=== PATIENT | male | born 1955 | race Caucasian/White ===

== ENCOUNTER 2017-02-20 19:48 | Emergency (ER) | payer MEDICARE, MEDICAID ==
[2017-02-20 20:00] VITALS: BP 148/70
[2017-02-20] MEDS ORDERED: Lidocaine 1% 20 ML MDV ONE (20:16)
--- NOTE | 2017-02-20 20:38 | EDM.PDOC ---
ED HPI GENERAL MEDICAL PROBLEM - General Chief Complaint: Laceration Stated Complaint: nail puncture wound R Time Seen by Provider: 02/20/17 20:15 History Limitations: Reports: No Limitations - History of Present Illness INITIAL COMMENTS - FREE TEXT/NARRATIVE: Stepped on a naile lacerating his 2nd toe on right foot Onset: Today Duration: Minutes: Location: Reports: Upper Extremity, Right Front/Back Body Image: 1 - 1.5 cm laceration 0 Pain Score (Numeric/FACES): 0 - Related Data Allergies Allergy/AdvReac Type Severity Reaction Status Date / Time No Known Allergies Allergy Verified 02/20/17 20:27 Home Meds: Home Meds Insuln Asp Prot/Insulin Aspart [NovoLOG Mix 70-30] 30 - 35 units SQ DAILY [History] Insuln Asp Prot/Insulin Aspart [NovoLOG Mix 70-30] 40 units SQ QAM 02/20/17 [ History] Valsartan/Hydrochlorothiazide [Valsartan-Hctz 160-12.5 mg Tab] 160 mg PO DAILY 02/20/17 [History] amLODIPine [Norvasc] 10 mg PO DAILY 02/20/17 [History] metFORMIN HCl [Metformin HCl] 1,000 mg PO BID 02/20/17 [History] Past Medical History - Past Health History Medical/Surgical History: Denies Medical/Surgical History Endocrine/Metabolic History: Reports: Diabetes, Type II - Past Surgical History Endocrine Surgical History: Reports: None Oncologic Surgical History: Reports: None Social & Family History - Tobacco Use Smoking Status *Q: Never Smoker Second Hand Smoke Exposure: No - Caffeine Use Caffeine Use: Reports: Coffee - Recreational Drug Use Recreational Drug Use: No ED ROS GENERAL - Review of Systems Review Of Systems: ROS reveals no pertinent complaints other than HPI. ED EXAM, SKIN/RASH Exam: See Below Exam Limited By: No Limitations General Appearance: Alert Ears: Normal External Exam Nose: Normal Inspection Throat/Mouth: Normal Inspection Head: Atraumatic Neck: Normal Inspection Respiratory/Chest: No Respiratory Distress Cardiovascular: Normal Peripheral Pulses GI/Abdominal: Normal Bowel Sounds (Male) Exam: No Hernia Rectal (Males) Exam: Normal Exam Back Exam: Normal Inspection Skin: Wound/Incision Location, Skin: Lower Extremity, Right ED SKIN PROCEDURES - Laceration/Wound Repair Right Side Toes Lac/Wound length In cm: 1.5 Appearance: Irregular Anesthetic Type: Local Local Anesthesia - Lidocaine (Xylocaine): 1% Plain Local Anesthetic Volume: 4cc Skin Prep: Providone-Iodine (Betadine), Saline Closed with: Sutures Suture Size: 3-0 Suture Type: Nylon Sterile Dressing Applied: Provider Tetanus Status Addressed: Yes Complications: No Course - Vital Signs Last Recorded V/S: Last Vital Signs Temp 99.7 F 02/20/17 19:54 Pulse 70 02/20/17 19:54 Resp 16 02/20/17 19:54 BP 148/70 H 02/20/17 19:54 Pulse Ox 96 02/20/17 19:54 - Orders/Labs/Meds Meds: Medications Discontinued Medications Generic Name Dose Route Start Last Admin Trade Name Vimal PRN Reason Stop Dose Admin Lidocaine HCl Confirm 02/20/17 20:16 Xylocaine 1% Administered 02/20/17 20:17 Dose 20 ml .ROUTE .STK-MED ONE Departure - Departure Time of Disposition: 20:35 Disposition: Home, Self-Care 01 Condition: Good Clinical Impression: Laceration - Discharge Information Instructions: Laceration Care, Adult, [id number] Forms: ED Department Discharge Additional Instructions: Take your medications as prescribed. follow up with Dr. Croft this week for wound check
[2017-02-20] MEDS ORDERED: Lidocaine 1% 20 ML MDV INJECT ONE (21:09)
== END 2017-02-20 20:55 | disposition home or self-care (01) ==
LOC: CC.ED 19:48
DX: S91.114A Laceration without foreign body of right lesser toe(s) without damage to nail, initial encounter (principal); E11.9 Type 2 diabetes mellitus without complications; Z79.4 Long term (current) use of insulin; Z79.899 Other long term (current) drug therapy; W45.0XXA Nail entering through skin, initial encounter
CPT/HCPCS: 12001; 96372; 99282; 99283

== ENCOUNTER 2023-11-24 09:44 | Day surgery (SDC) | payer MEDICARE, MEDICAID ==
[2023-11-24] MEDS: Cyclopentolat/Tropic/Phenyleph 1 ML Ophth Drop SDV EYERT SCH (10:21)
[2023-11-24] MEDS: Lactated Ringers 1,000 ML IV SCH (10:22)
[2023-11-24] MEDS ORDERED: Midazolam 1 MG/ML 2 ML SDV ONE (11:08)
[2023-11-24] MEDS: Tetracaine HCl/PF 0.5% 4 ML Bottle EYERT ONE (11:21)
[2023-11-24] MEDS: Brimonidine 0.2% Ophth Soln 5 ML Bottle EYERT ONE (11:21)
[2023-11-24] MEDS: Lidocaine 1% 5 ML VIAL INJECT ONE (11:21)
[2023-11-24] MEDS: MOXIFLOXACIN PF in BSS 1 MG/ML VIAL ICORN ONE (11:21)
[2023-11-24] MEDS: Phenyleprhine/Ketorolac 4 ML Vial IO ONE (11:21)
[2023-11-24] MEDS: Povidone-Iodine 5% Sterile Ophth Soln 30 ML Bottle EYERT ONE (11:21)
[2023-11-24] MEDS ORDERED: acetaZOLAMIDE 500 MG Cap.ER ONE (12:01)
[2023-11-24] MEDS: acetaZOLAMIDE 500 MG Cap.ER PO ONE (12:02)
[2023-11-24 13:13] VITALS: BP 130/56; PULSE 69
== END 2023-11-24 12:25 | disposition home or self-care (01) ==
LOC: CC.SDS 09:44
PROVIDERS: ATTEND Ophthalmology
DX: E11.36 Type 2 diabetes mellitus with diabetic cataract (principal); E11.42 Type 2 diabetes mellitus with diabetic polyneuropathy; I10 Essential (primary) hypertension; E78.5 Hyperlipidemia, unspecified; E53.8 Deficiency of other specified B group vitamins; E34.9 Endocrine disorder, unspecified; Z79.4 Long term (current) use of insulin; Z79.85 Long-term (current) use of injectable non-insulin antidiabetic drugs; Z79.899 Other long term (current) drug therapy; Z88.6 Allergy status to analgesic agent
CPT/HCPCS: 00142; A9270-GY; J1097; J2250; J3490; J7120

== ENCOUNTER 2023-12-22 07:42 | Day surgery (SDC) | payer MEDICARE, MEDICAID ==
[2023-12-22] MEDS: Cyclopentolat/Tropic/Phenyleph 1 ML Ophth Drop SDV EYELF SCH (08:15)
[2023-12-22] MEDS: Lactated Ringers 1,000 ML IV SCH (08:16)
[2023-12-22] MEDS: Moxifloxacin 0.5% Ophth Soln 3 ML Bottle EYELF ONE (08:35)
[2023-12-22] MEDS ORDERED: Midazolam 1 MG/ML 2 ML SDV ONE (08:43)
[2023-12-22] MEDS: Povidone-Iodine 5% Sterile Ophth Soln 30 ML Bottle EYELF ONE (08:55)
[2023-12-22] MEDS: MOXIFLOXACIN PF in BSS 1 MG/ML VIAL ICORN ONE (08:55)
[2023-12-22] MEDS: Lidocaine 1% 5 ML VIAL INJECT ONE (08:55)
[2023-12-22] MEDS: Brimonidine 0.2% Ophth Soln 5 ML Bottle EYELF ONE (08:55)
[2023-12-22] MEDS: Tetracaine HCl/PF 0.5% 4 ML Bottle EYELF ONE (08:55)
[2023-12-22] MEDS: Phenyleprhine/Ketorolac 4 ML Vial IR ONE (08:55)
[2023-12-22] MEDS: acetaZOLAMIDE 500 MG Cap.ER PO ONE (09:24)
[2023-12-22 10:05] VITALS: BP 107/53; PULSE 89
== END 2023-12-22 10:17 | disposition home or self-care (01) ==
LOC: CC.SDS 07:42
PROVIDERS: ATTEND Ophthalmology
DX: E11.36 Type 2 diabetes mellitus with diabetic cataract (principal); H57.03 Miosis; E11.42 Type 2 diabetes mellitus with diabetic polyneuropathy; J45.909 Unspecified asthma, uncomplicated; I10 Essential (primary) hypertension; E78.00 Pure hypercholesterolemia, unspecified; E53.8 Deficiency of other specified B group vitamins; E34.8 Other specified endocrine disorders; Z79.4 Long term (current) use of insulin; Z79.85 Long-term (current) use of injectable non-insulin antidiabetic drugs; Z79.899 Other long term (current) drug therapy
CPT/HCPCS: A9270-GY; J1097; J2250; J3490; J7120; V2632